=== PATIENT | female | born 1960 | race Caucasian/White ===

== ENCOUNTER 2018-03-09 10:50 | Day surgery (SDC) | payer OTHER ==
[2018-03-09] MEDS ORDERED: LR 1,000 ML IV ONE (11:15)
--- NOTE | 2018-03-09 12:42 | PDGENHP ---
History & Physical Chief Complaint: phx polyps History of Present Illness: 57 year old female presents for surveillance colonoscopy. Pertinent Past, Social, Family History: PSurghx: CCY. PMedhx: hypothyroid, depression Relevant Physical Exam: GEN: AAO x 3. HEENT: anicteric. CV: RRR +s1s2. Lungs : CTAB. Abd: soft, nt, + bs Cardiorespiratory Assessment: ASA 2
--- NOTE | 2018-03-09 12:48 | PDANEPAE ---
ANE History of Present Illness Colonoscope hx polyps ANE Past Medical History - Cardiovascular History Hx Hypertension: No Hx Arrhythmias: No Hx Chest Pain: No Hx Coronary Artery / Peripheral Vascular Disease: No Hx CHF / Valvular Disease: No Hx Palpitations: No - Pulmonary History Hx COPD: No Hx Asthma/Reactive Airway Disease: No Hx Recent Upper Respiratory Infection: No Hx Oxygen in Use at Home: No Hx Sleep Apnea: No Sleep Apnea Screening Result - Last Documented: Negative - Neurologic History Hx Cerebrovascular Accident: No Hx Seizures: No Hx Dementia: No - Endocrine History Hx Diabetes: No Obesity: severe Endocrine History Comment: HYPOTHYROID - Renal History Hx Renal Disorders: No - Liver History Hx Hepatic Disorders: No - Neurological & Psychiatric Hx Hx Neurological and Psychiatric Disorders: Yes Neurological / Psychiatric History Comment: ANXIETY - Cancer History Hx Cancer: Yes 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 INTERNAL HEMORRHOIDS - Chronic Pain History Chronic Pain: Yes (RECTAL DISCOMFORT) - Surgical History Prior Surgeries: COLONOSCOPY. ALAINA. MOH'S PROCEDURES GARIMA ARMS AND LT LEG CALF ANE Review of Systems Review of Systems: - Exercise capacity METS (RN): 4 METS ANE Patient History - Allergies Allergies/Adverse Reactions: No Known Allergies Allergy (Unverified 02/26/18 10:48) - Home Medications Home Medications: Herbals/Supplements -Info Only DAILY 02/26/18 [Last Taken 03/02/18] Lexapro DAILY 02/26/18 [Last Taken 03/09/18] Synthroid DAILY 02/26/18 [Last Taken 03/09/18] - NPO status NPO Since - Liquids (Date): 03/09/18 NPO Since - Liquids (Time): 09:00 NPO Since - Solids (Date): 03/07/18 NPO Since - Solids (Time): 09:00 - Smoking Hx Smoking Status: Former smoker ANE Labs/Vital Signs - Vital Signs Blood Pressure: 151/90 Heart Rate: 80 Respiratory Rate: 16 O2 Sat (%): 95 Height: 158.75 cm Weight: 127.006 kg ANE Physical Exam - Airway Neck exam: FROM Mallampati Score: Class 2 - Pulmonary Pulmonary: no respiratory distress, no rales or rhonchi - Cardiovascular Cardiovascular: regular rate and rhythym, no murmur, rub, or gallop - ASA Status ASA Status: III ANE Anesthesia Plan Anesthesia Plan: GA with mask
[2018-03-09] MEDS ORDERED: MIDAZOLAM 2 MG/2 ML VIAL ONE (12:52)
[2018-03-09] MEDS ORDERED: PROPOFOL/EMULSION 500 MG/50 ML BOTTLE IV ONE (12:53)
[2018-03-09] MEDS ORDERED: ALBUTEROL 3 ML DEYVIAL IH PRN (13:05)
[2018-03-09] MEDS ORDERED: NALOXONE HCL 0.4 MG/ML INJ IVP PRN (13:05)
[2018-03-09] MEDS ORDERED: ONDANSETRON 4 MG/2 ML VIAL IVP PRN (13:05)
[2018-03-09] MEDS ORDERED: PROMETHAZINE HCL 25 MG/ML INJ IVP PRN (13:05)
[2018-03-09] MEDS ORDERED: fentaNYL 100 MCG/2 ML INJ IVP PRN (13:05)
--- NOTE | 2018-03-09 13:33 | GIREPORT ---
[facility] Surgical Services - Endoscopy Department Patient Name: Gina Babin Procedure Date: 03/09/2018 12:43 PM Patient Type: Outpatient Attending MD/ ER Physician: Ernie Zavaleta MD Procedure: Colonoscopy Indications: High risk colon cancer surveillance: Personal history of colonic polyps Patient Profile: 57 year old female with a family history of CRC, personal history of po lyps presents for surveillance colonoscopy. Providers: Ernie Zavaleta MD Medicines: Monitored Anesthesia Care Complications: No immediate complications. Estimated blood loss: Minimal. Description of Procedure: After obtaining informed consent, the scope was passed under direct vis ion. Throughout the procedure, the patient's blood pressure, pulse, and oxyg en saturations were monitored continuously. The colonoscopy was performed without difficulty. The patient tolerated the procedure well. The quali ty of the bowel preparation was good. The Colonoscope with irrigation channel was introduced through the anus and advanced to the cecum, identified by appendiceal orifice and ileocecal valve. Findings: The perianal exam findings include non-thrombosed internal hemorrhoids. Diverticula were found in the sigmoid colon. A 4 mm polyp was found in the ascending colon. The polyp was sessile. T he polyp was removed with a cold biopsy forceps. Resection and retrieval w ere complete. Estimated Blood Loss: Estimated blood loss was minimal. Post Op Diagnosis: - Non-thrombosed internal hemorrhoids found on perianal exam. - Diverticulosis in the sigmoid colon. - One 4 mm polyp in the ascending colon, removed with a cold biopsy for ceps. Resected and retrieved. Recommendation: - Discharge patient to home (with escort). - The signs and symptoms of potential delayed complications were discus sed with the patient. - Patient has a contact number available for emergencies. - Return to normal activities tomorrow. - Resume previous diet. - Continue present medications. - Await pathology results. - Repeat colonoscopy in 5 years for surveillance. - Use fiber, for example Citrucel, Fibercon, Konsyl or Metamucil. - Thank you for allowing me to participate in the care of your patient. Attending Participation: I personally performed the entire procedure. Ernie Zavaleta MD Ernie Zavaleta MD 03/09/2018 1:32:58 PM This report has been signed electronicallyErnie Zavaleta MD Number of Addenda: 0 Note Initiated On: 03/09/2018 12:43 PM Total Procedure Duration Time 0 hours 17 minutes 20 seconds [email or web address]
--- NOTE | 2018-03-09 13:55 | POSTANESTH ---
Post Anesthetic Evaluation Cardiovascular Status: Normal, Stable Respiratory Status: Normal, Stable Level of Consciousness/Mental Status: Can Participate in Eval Pain Control: Adequate, Prn Tx Ordered Nausea/Vomiting Control: Adequate, Prn Tx Ordered Complications Possibly Related to Anesthesia: None Noted
[2018-03-09 14:45] VITALS: BP 140/53
== END 2018-03-09 14:45 | disposition home or self-care (01) ==
LOC: FSGY 10:50
PROVIDERS: ATTEND Internal Medicine Gastroenterology
PROC: 0DBK8ZX Excision of Ascending Colon, Via Natural or Artificial Opening Endoscopic, Diagnostic (ICD-10-PCS; principal; 2018-03-09 12:30)
DX: Z86.010 Personal history of colon polyps (principal); D12.2 Benign neoplasm of ascending colon; E03.9 Hypothyroidism, unspecified; F32.9 Major depressive disorder, single episode, unspecified
CPT/HCPCS: J2250; J2704